=== PATIENT | male | born 1945 | race Caucasian/White ===

== ENCOUNTER 2018-02-10 11:36 | Emergency (ER) | payer MEDICARE ==
[~2018-02-10] VITALS: Ht 185.4 cm; Wt 71.8 kg
[2018-02-10 11:38] VITALS: BP 149/80
[2018-02-10] MEDS ORDERED: LIDOCAINE-MPF 2% ,5ML ONE (11:54)
[2018-02-10] MEDS ORDERED: CEFTRIAXONE 1,000 MG IM ONE (12:00)
[2018-02-10] MEDS ORDERED: DIPH,PERTUSS(ACELL),TET VAC/PF 0.5 ML IM-VACC ONE ×2 (12:00→12:01)
[2018-02-10] MEDS ORDERED: CEFTRIAXONE 1,000 MG ONE (12:00)
[2018-02-10] MEDS ORDERED: LIDOCAINE-MPF 1%, 5ML INFIL ONE (12:00)
[2018-02-10] MEDS ORDERED: LIDOCAINE-MPF 1%, 2ML ONE (12:05)
== END 2018-02-10 12:56 | disposition home or self-care (01) ==
LOC: ED 12:29
DX: L03.114 Cellulitis of left upper limb (principal); L02.512 Cutaneous abscess of left hand
CPT/HCPCS: 10060; 90471; 90715; 96372; 99284; J0696

== ENCOUNTER 2018-07-16 20:39 | Emergency (ER) | payer MEDICARE ==
[~2018-07-16] VITALS: Ht 185.4 cm; Wt 76.0 kg
[2018-07-16 21:11] LABS: BASOPHILS # (AUTO) 0.02 x10^3/uL (0-0.1); BASOPHILS % (AUTO) 0 % (0-1); EOSINOPHILS # (AUTO) 0.06 x10^3/uL (0-0.4); EOSINOPHILS % (AUTO) 1 % (1-7); LYMPHOCYTES # (AUTO) 1.07 x10^3/uL (1-3.4); LYMPHOCYTES % (AUTO) 16 % (22-44); MD NO; MEAN CORPUSCULAR HEMOGLOBIN 29.4 pg (27.5-34.5); MEAN CORPUSCULAR HGB CONC 33.4 g/dL (33.2-36.2); MEAN PLATELET VOLUME 9.9 fL (7.4-10.4); MONOCYTES # (AUTO) 0.43 x10^3/uL (0.2-0.8); MONOCYTES % (AUTO) 6 % (2-9); NEUTROPHILS # (AUTO) 5.12 x10^3/uL (1.8-6.8); NEUTROPHILS % (AUTO) 77 % (42-75); PLATELET COUNT 232 x10^3/uL (130-400); RED BLOOD COUNT 5.17 x10^6/uL (4.38-5.82)
[2018-07-16 21:25] LABS: ALANINE AMINOTRANSFERASE 24 U/L (12-78); ALBUMIN 3.7 g/dL (3.4-5.0); ANION GAP 6 mmol/L (5-15); CHLORIDE 106 mmol/L (98-107); CREATININE 1.39 mg/dL (0.7-1.3)
[2018-07-16 21:27] LABS: ALKALINE PHOSPHATASE 105 U/L (45-117); BILIRUBIN,TOTAL 0.5 mg/dL (0.2-1.0); TOTAL PROTEIN 7.8 g/dL (6.4-8.2)
[2018-07-16 21:33] LABS: MICROSCOPIC NOT IND
[2018-07-16 21:36] LABS: CULTURE INDICATED? NO
[2018-07-16 21:38] VITALS: BP 169/117
[2018-07-16] MEDS ORDERED: COLCHICINE 0.6 MG TABLET PO STA (21:55)
[2018-07-16] MEDS ORDERED: COLCHICINE 0.6 MG TABLET ONE (21:59)
== END 2018-07-16 22:12 | disposition home or self-care (01) ==
LOC: ED 21:19
DX: S99.912A Unspecified injury of left ankle, initial encounter (principal); M19.072 Primary osteoarthritis, left ankle and foot; I10 Essential (primary) hypertension; X58.XXXA Exposure to other specified factors, initial encounter; Y93.89 Activity, other specified; Y92.009 Unspecified place in unspecified non-institutional (private) residence as the place of occurrence of the external cause; Y99.8 Other external cause status
CPT/HCPCS: 36415; 71046; 80053; 81003; 84550; 85025; 93005; 99284

== ENCOUNTER 2020-05-03 22:30 | Emergency (ER) | payer MEDICARE ==
[~2020-05-03] VITALS: Ht 185.4 cm; Wt 73.6 kg
[2020-05-03 22:32] VITALS: BP 158/100
--- NOTE | 2020-05-03 22:58 | NUR ---
75 YEAR OLD MALE TO ED FOR C/O RIGHT EYE REDDNESS AND DISCHARGE X 2 DAYS. HE DENIES TRAUMA OR FOREIGN BODY. VISUAL ACUITY: R 20/25 L 20/20 B 20/25
== END 2020-05-03 23:15 ==
LOC: ED 22:45
DX: H10.021 Other mucopurulent conjunctivitis, right eye (principal); I10 Essential (primary) hypertension; M10.9 Gout, unspecified; Z90.89 Acquired absence of other organs
CPT/HCPCS: 99283